=== PATIENT | male | born 1975 | race Caucasian/White ===

== ENCOUNTER 2016-12-29 22:23 | Emergency (ER) | payer BC ==
--- NOTE | 2016-12-29 22:46 | CPEKG ---
Heart Rate: 80 RR Interval: 750 P-R Interval: 200 QRSD Interval: 106 QT Interval: 396 QTC Interval: 457 P Canova: 53 QRS Canova: -1 T Wave Canova: 24 EKG Severity - NORMAL ECG - EKG Impression: SINUS RHYTHM EKG Impression: ST ELEV, PROBABLE NORMAL EARLY REPOL PATTERN Electronically Signed By: Roberth Kang 30-Dec-2016 01:35:07
[2016-12-29] MEDS ORDERED: ASPIRIN 81 MG CHEWABLE TAB ONE (22:48)
[2016-12-29] MEDS ORDERED: HYDROmorphONE/DILAUDID 1 MG/ML SYR ONE (22:48)
[2016-12-29 22:50] LABS: % IMMATURE GRANULYOCYTES 0.5 % (0.0-1.1); ABSOLUTE IMMATURE GRANULOCYTES 0.08 10^3/uL (0.00-0.10); ADD DIFF? NO; ADD MORPH? NO; ADD SCAN? NO; ATYPICAL LYMPHOCYTE FLAG 0 (0-99); FRAGMENT RBC FLAG 0 (0-99); HEMATOCRIT 49.2 % (40.0-51.0); HEMOGLOBIN 17.1 g/dL (13.7-17.5); LEFT SHIFT FLG 0 (0-99); LIPEMIA HEMOLYSIS FLAG 90 (0-99); MEAN CELL HEMOGLOBIN 31.7 pg (27.9-34.1); MEAN CELL HEMOGLOBIN CONCENTR. 34.8 g/dL (32.4-36.7); MEAN CELL VOLUME 91.1 fL (81.5-99.8); MEAN PLATELET VOLUME 10.4 fL (8.7-11.7); PLATELET CLUMPS FLAG 20 (0-99); PLATELET COUNT 268 10^3/uL (150-400); RED CELL DISTRIBUTION WIDTH 12.5 % (11.5-15.2)
[2016-12-29] MEDS ORDERED: ASPIRIN 81 MG CHEWABLE TAB PO ONE (22:56)
[2016-12-29] MEDS ORDERED: NS 1,000 ML IV ONE ×2 (22:56→23:34)
[2016-12-29] MEDS ORDERED: HYDROmorphONE/DILAUDID 1 MG/ML SYR IVP ONE (22:56)
[2016-12-29 23:14] LABS: ALANINE AMINOTRANSFERASE 61 IU/L (21-72); ALBUMIN 4.8 g/dL (3.5-5.0); ALKALINE PHOSPHATASE 74 IU/L (38-126); ANION GAP 14 mEq/L (8-16); ASPARTATE AMINOTRANSFERASE 79 IU/L (17-59); BILIRUBIN-CONJUGATED 0.3 mg/dL (0.0-0.5); BILIRUBIN-UNCONJUGATED 0.7 mg/dL (0.0-1.1); CALCIUM 10.6 mg/dL (8.5-10.4); CARBON DIOXIDE 24 mEq/l (22-31); CHLORIDE 104 mEq/L (97-110); CREATININE 1.2 mg/dL (0.7-1.3); GLOMERULAR FILTRATION RATE > 60; GLUCOSE 112 mg/dL (70-100); SODIUM 142 mEq/L (134-144); TOTAL PROTEIN 7.2 g/dL (6.3-8.2)
[2016-12-29 23:26] LABS: TROPONIN I 0.042 ng/mL (0-0.034)
[2016-12-29 23:48] LABS: CK-MB INTERPRETATION NEGATIVE (NEGATIVE)
--- NOTE | 2016-12-30 00:14 | EDPHY ---
H & P Stated Complaint: IM finisher, c/o LE cramping and abd cramping Time Seen by Provider: 12/29/16 22:26 HPI/ROS: Chief Complaint: Abdominal pain, leg cramping, nausea HPI: 41-year-old male completed the [employer] man race this evening. Patient has since been having cramping in his legs, abdominal pain and some mild nausea. Has run an iron Man before and states that he required a several-day hospitalization after developing pancreatitis and renal failure. Patient states he has been drinking plenty of fluids. He did take 3 Adderall today. No vomiting. No chest pain or shortness of breath. ROS: 10 point Review of Systems is negative except as noted in the HPI. PMH: Post concussive syndrome, L5-S1 disc disease Medications: Adderall, Pristiq, Percocet p.r.n., testosterone Allergies: No known drug allergies Social History: No smoking, occasional alcohol, no recreational drug use Family History: non-contributory Physical Exam: Gen: Awake, Alert, No Distress HEENT: Nose: no rhinorrhea Eyes: PERRLA, EOMI Mouth: Moist mucosa Neck: Supple, no JVD Chest: nontender, lungs clear to auscultation Heart: S1, S2 normal, no murmur Abd: Soft, non-tender, no guarding Back: no CVA tenderness, no midline tenderness Ext: no edema, non-tender Skin: no rash Neuro: CN II-XII intact, Sensation grossly intact, Strength 5/5 in bilateral upper and lower extremities - Medical/Surgical History Hx Asthma: No Hx Chronic Respiratory Disease: No Hx Diabetes: No Hx Cardiac Disease: No Hx Renal Disease: No Hx Cirrhosis: No Hx Alcoholism: No Hx HIV/AIDS: No Hx Splenectomy or Spleen Trauma: No Other PMH: post concussion syndrome, L5/S1 bulging disc, melanoma abd, multi ortho surg, bowel obst surg - Social History Smoking Status: Never smoked Constitutional: Initial Vital Signs Temperature (C) 36.8 C 12/29/16 22:33 Heart Rate 91 12/29/16 22:33 Respiratory Rate 18 12/29/16 22:33 Blood Pressure 155/98 H 12/29/16 22:33 O2 Sat (%) 97 12/29/16 22:33 O2 Delivery Mode Room Air O2 (L/minute) 2 Allergies/Adverse Reactions: No Known Allergies Allergy (Unverified 12/29/16 22:36) Home Medications: Medication Instructions Recorded ADDERALL 15 MG TABLET 12/29/16 PRISTIQ 12/29/16 Percocet 5-325 mg Tablet 12/29/16 TESTOSTERONE 12/29/16 Medical Decision Making - Diagnostics EKG Interpretation: ECG time 09/09/1946. Sinus rhythm with a rate of 80, normal axis, normal intervals, there is ST elevation in V1 and V2 consistent with early repolarization. There is a no reciprocal changes. ED Course/Re-evaluation: Patient is noted have a mild bump in his troponin. Also has an elevated CPK. Renal function electrolytes are okay. Will continue to hydrate. I think the troponin bump is likely secondary to the iron min. Plan will be to continue to hydrate and repeat his blood tests and a couple hours to make sure that they are trending downward. He has been given aspirin here. 0350 patient is feeling improved. Troponin is down. CPK is down. Think his troponin is secondary to the arm and that he ran. No evidence of acute cardiac ischemia at this time. Will discharge with follow with primary care physician. - Data Points Laboratory Results: Laboratory Results 12/29/16 22:24 12/30/16 02:40 12/30/16 12/30/16 12/29/16 02:40 02:00 22:24 WBC RBC Hgb Hct MCV MCH MCHC RDW Plt Count MPV Neut % (Auto) Lymph % (Auto) Tyrrell % (Auto) Eos % (Auto) Baso % (Auto) Nucleat RBC Rel Count Absolute Neuts (auto) Absolute Lymphs (auto) Absolute Monos (auto) Absolute Eos (auto) Absolute Basos (auto) Absolute Nucleated RBC Immature Gran % Immature Gran # Turbidity TNP Sodium 141 mEq/L mEq/L TNP 142 mEq/L mEq/L (134-144) (134-144) Potassium 4.6 mEq/L mEq/L TNP 5.0 mEq/L mEq/L (3.5-5.2) (3.5-5.2) Chloride 108 mEq/L mEq/L TNP 104 mEq/L mEq/L (97-110) (97-110) Carbon Dioxide 24 mEq/l mEq/l TNP 24 mEq/l mEq/l (22-31) (22-31) Anion Gap 9 mEq/L mEq/L TNP 14 mEq/L mEq/L (8-16) (8-16) BUN 27 mg/dL H mg/dL TNP 31 mg/dL H mg/dL (7-23) (7-23) Creatinine 1.1 mg/dL mg/dL TNP 1.2 mg/dL mg/dL (0.7-1.3) (0.7-1.3) Estimated GFR > 60 TNP > 60 Glucose 95 mg/dL mg/dL TNP 112 mg/dL H mg/dL (70-100) (70-100) Calcium 9.2 mg/dL mg/dL TNP 10.6 mg/dL H mg/dL (8.5-10.4) (8.5-10.4) Total Bilirubin 1.0 mg/dL mg/dL (0.1-1.4) Conjugated Bilirubin 0.3 mg/dL mg/dL (0.0-0.5) Unconjugated Bilirubin 0.7 mg/dL mg/dL (0.0-1.1) AST 79 IU/L H IU/L (17-59) ALT 61 IU/L IU/L (21-72) Alkaline Phosphatase 74 IU/L IU/L (38-126) Creatine Kinase 1263 IU/L H IU/L TNP 1450 IU/L H IU/L (0-224) (0-224) CK-MB (CK-2) Fraction 13.40 ng/mL H ng/mL 12.60 ng/mL H ng/mL (0-3.19) (0-3.19) CK-MB (CK-2) % 1.1 % % 0.9 % % (0.0-4.0) (0.0-4.0) Creatine Kinase Interp NEGATIVE NEGATIVE (NEGATIVE) (NEGATIVE) Troponin I 0.036 ng/mL H ng/mL TNP 0.042 ng/mL H ng/mL (0-0.034) (0-0.034) Total Protein 7.2 g/dL g/dL (6.3-8.2) Albumin 4.8 g/dL g/dL (3.5-5.0) Lipase 114.0 IU/L IU/L (23-300) Specimen Hemolysis REJ 12/29/16 22:24 WBC 16.02 10^3/uL H 10^3/uL (3.80-9.50) RBC 5.40 10^6/uL 10^6/uL (4.40-6.38) Hgb 17.1 g/dL g/dL (13.7-17.5) Hct 49.2 % % (40.0-51.0) MCV 91.1 fL fL (81.5-99.8) MCH 31.7 pg pg (27.9-34.1) MCHC 34.8 g/dL g/dL (32.4-36.7) RDW 12.5 % % (11.5-15.2) Plt Count 268 10^3/uL 10^3/uL (150-400) MPV 10.4 fL fL (8.7-11.7) Neut % (Auto) 84.5 % H % (39.3-74.2) Lymph % (Auto) 6.2 % L % (15.0-45.0) Tyrrell % (Auto) 8.5 % % (4.5-13.0) Eos % (Auto) 0.0 % L % (0.6-7.6) Baso % (Auto) 0.3 % % (0.3-1.7) Nucleat RBC Rel Count 0.0 % % (0.0-0.2) Absolute Neuts (auto) 13.53 10^3/uL H 10^3/uL (1.70-6.50) Absolute Lymphs (auto) 1.00 10^3/uL 10^3/uL (1.00-3.00) Absolute Monos (auto) 1.36 10^3/uL H 10^3/uL (0.30-0.80) Absolute Eos (auto) 0.00 10^3/uL L 10^3/uL (0.03-0.40) Absolute Basos (auto) 0.05 10^3/uL 10^3/uL (0.02-0.10) Absolute Nucleated RBC 0.00 10^3/uL 10^3/uL (0-0.01) Immature Gran % 0.5 % % (0.0-1.1) Immature Gran # 0.08 10^3/uL 10^3/uL (0.00-0.10) Turbidity Sodium Potassium Chloride Carbon Dioxide Anion Gap BUN Creatinine Estimated GFR Glucose Calcium Total Bilirubin Conjugated Bilirubin Unconjugated Bilirubin AST ALT Alkaline Phosphatase Creatine Kinase CK-MB (CK-2) Fraction CK-MB (CK-2) % Creatine Kinase Interp Troponin I Total Protein Albumin Lipase Specimen Hemolysis Medications Given: Discontinued Medications Aspirin (Aspirin) 324 mg PO EDNOW ONE Stop: 12/29/16 22:57 Last Admin: 12/29/16 22:56 Dose: 324 mg Hydromorphone HCl (Dilaudid) 1 mg IVP EDNOW ONE Stop: 12/29/16 22:57 Last Admin: 12/29/16 22:57 Dose: 1 mg Sodium Chloride (Ns) 1,000 mls @ 0 mls/hr IV ONCE ONE PRN Reason: Wide Open Stop: 12/29/16 22:57 Last Admin: 12/29/16 22:56 Dose: 1,000 mls Sodium Chloride (Ns) 1,000 mls @ 0 mls/hr IV ONCE ONE PRN Reason: Wide Open Stop: 12/29/16 23:35 Last Admin: 12/29/16 23:45 Dose: 1,000 mls Sodium Chloride (Ns) 1,000 mls @ 500 mls/hr IV ONCE ONE Stop: 12/30/16 02:37 Last Admin: 12/30/16 00:40 Dose: 1,000 mls Departure - Departure Disposition: Home, Routine, Self-Care Clinical Impression: Rhabdomyolysis, Dehydration Instructions: Rhabdomyolysis (ED), Dehydration (ED) Additional Instructions: Continue to drink plenty of fluids, especially electrolytes such as Pedialyte or Gatorade. Follow up with primary care physician in 2-3 days for re-evaluation. Return to the emergency department for increasing chest pain, uncontrolled nausea vomiting, fevers, chills, shortness of breath, or any other concerns. Do not use ibuprofen for at least 48 hours. Referrals: JOVANI NAZARIO [Other] - As per Instructions
[2016-12-30] MEDS ORDERED: NS 1,000 ML IV ONE (00:38)
[2016-12-30] MEDS ORDERED: ACETAMINOPHEN 500 MG TAB ONE (02:29)
[2016-12-30 02:58] LABS: ANION GAP 9 mEq/L (8-16); CALCIUM 9.2 mg/dL (8.5-10.4); CARBON DIOXIDE 24 mEq/l (22-31); CHLORIDE 108 mEq/L (97-110); CREATININE 1.1 mg/dL (0.7-1.3); GLOMERULAR FILTRATION RATE > 60; GLUCOSE 95 mg/dL (70-100); POTASSIUM 4.6 mEq/L (3.5-5.2); SODIUM 141 mEq/L (134-144)
[2016-12-30 03:10] LABS: TROPONIN I 0.036 ng/mL (0-0.034)
[2016-12-30 03:32] VITALS: BP 122/70; PULSE 74; RESP 14; O2SAT 93
[2016-12-30 03:35] LABS: CK-MB INTERPRETATION NEGATIVE (NEGATIVE)
[2016-12-30 04:14] VITALS: TEMP 97.7
== END 2016-12-30 04:13 | disposition home or self-care (01) ==
DX: M62.82 Rhabdomyolysis (principal); E86.0 Dehydration
CPT/HCPCS: 96374; J1170